=== PATIENT | male | born 1980 | race Caucasian/White ===

== ENCOUNTER 2019-06-09 21:43 | Emergency (ER) | payer OTHER ==
[~2019-06-09] VITALS: Ht 190.5 cm; Wt 106.6 kg
[~2019-06-09 21:43] MED LIST: CRUTCH2 USE; CYCL10 PO; HYDACE5 PO; IBUP600 PO
== END 2019-06-09 23:35 | disposition home or self-care (01) ==
LOC: ER 21:43
DX: S02.32XA Fracture of orbital floor, left side, initial encounter for closed fracture (principal); S02.2XXA Fracture of nasal bones, initial encounter for closed fracture; S02.40DA Maxillary fracture, left side, initial encounter for closed fracture; F10.10 Alcohol abuse, uncomplicated; F17.200 Nicotine dependence, unspecified, uncomplicated; Y04.8XXA Assault by other bodily force, initial encounter
CPT/HCPCS: 70450; 71045; 99284-25

== ENCOUNTER 2022-10-01 05:02 | Emergency (ER) | payer OTHER ==
[~2022-10-01] VITALS: Ht 190.5 cm; Wt 108.9 kg
[2022-10-01] MEDS ORDERED: CYCL10 PO (07:19)
== END 2022-10-01 07:57 | disposition home or self-care (01) ==
LOC: ER 05:02
DX: M25.562 Pain in left knee (principal); F17.220 Nicotine dependence, chewing tobacco, uncomplicated
CPT/HCPCS: 73562-LT; A9270; J1885